=== PATIENT | female | born 1985 | race Two or more races ===

== ENCOUNTER 2022-04-24 19:56 | Emergency (ER) | payer MEDICAID ==
[~2022-04-24] VITALS: Ht 172.7 cm; Wt 96.5 kg
[2022-04-24 23:34] VITALS: BP 109/72
[2022-04-25] MEDS ORDERED: AMOX500C2 PO ×2 (00:04)
== END 2022-04-25 00:20 | disposition home or self-care (01) ==
LOC: ER 19:56
DX: J02.9 Acute pharyngitis, unspecified (principal); H66.91 Otitis media, unspecified, right ear; Z79.1 Long term (current) use of non-steroidal anti-inflammatories (NSAID)